=== PATIENT | male | born 1995 | race Caucasian/White ===

== ENCOUNTER 2016-12-26 01:45 | Emergency (ER) | payer OTHER ==
[~2016-12-26] VITALS: Ht 165.1 cm; Wt 63.6 kg
[~2016-12-26 01:45] MED LIST: HYDR-4003 PO
[2016-12-26 01:53] VITALS: BP 142/73; PULSE 74; RESP 16; O2SAT 98
--- NOTE | 2016-12-26 03:19 | ED.REPORT ---
HPI-Extremity Problem Lower Date of Service December 26, 2016 ED Provider: Bolivar Botello MD A healthy 21 year old male presents to the ED accompanied by his father with a right ankle injury onset just prior to arrival. The patient was riding a skateboard and inverted his ankle. The ankle immediately began to swell. The patient denies additional injury/trauma or other symptoms. Nursing Notes Chief Complaint: Extremity Trauma Nursing Notes Reviewed: Yes Allergies: Coded Allergies: No Known Allergies (Unverified , 04/19/16) Scheduled PRN Hydrocodone-Acetaminophen 5-325 mg (Hydrocodone-Acetaminophen 5-325 mg) 1 Each Tablet 1 TABLET PO Q4H PRN PRN For Pain General Time Seen by MD: 03:12 Chief Complaint Ankle injury right Hx Obtained From: Patient Arrived By: Walk-in Onset Occurred: Just prior to arrival Symptom Duration: Since onset Caused by: Sports injury (Skateboarding) Location: : Ankle right Quality: Painful Severity: Current: Moderate Severity: Maximum: Moderate Pertinent Negative: Relieved by nothing Recent Healthcare: No recent doctor visit Past Medical History Past Medical History Healthy Past Surgical History None reported Smoking History Unknown if Ever Smoker Social History Drug Use: THC Other Social History: Good social support Ambulatory Status Independent Review of Systems Constitutional: Denies: Fever Musculoskeletal: Reports: Joint pain (Right ankle), Joint swelling (Right ankle ) Complete sys rev & neg: except as marked. Respiratory: Denies: Non-productive cough, Shortness of breath GI: Denies: Diarrhea, Vomiting Physical Exam Initial Vital Signs Vital Signs (First) Date Time Temp Pulse Resp B/P Pulse Ox O2 Delivery O2 Flow Rate FiO2 12/26/16 01:53 36.7 74 16 142/73 98 Initial VS: Reviewed Head / Eyes: Atraumatic, Normocephalic ENT: Conjunctiva normal, No scleral icterus Neck: Supple, Full range of motion Respiratory: No respiratory distress Skin: Warm, Dry Neurologic: Alert, Oriented Psychiatric: Mood/affect normal, Behavior normal Ankle / Foot: Neurologic intact, Vascular intact (Good pulses) Right Ankle: Positive: Swelling present..., Tender lateral malleolus, Tender medial malleolus General/Constitutional: Awake, Alert Interpretation & Diagnostics X-Ray Interpretation Xray Interpretation: No fracture or dislocation Study Performed: 3 View X-Ray Ordered: Ankle right Interpretation / Wet Read by: Wet read ED physician Re-Eval/Medical Decision Re-Evaluation/Progress #1: Time of Eval: 04:01 Patient Status: Condition improved Re-Evaluation/Progress Note: Discussed with patient x-ray results, diagnosis, and plan for discharge. Follow-up and return to the ER instructions given. Patient agrees with plan for care and all questions were addressed. Re-Evaluation/Progress #2: Time of Eval: 04:07 Patient Status: Condition improved Re-Evaluation/Progress Note: Splint checked. Counseled Regarding: Diagnosis, Need for follow-up, When/why to return to ED Discharge & Departure Impression: Primary Impression: Right ankle sprain Encounter type: initial encounter Disposition: Home Discharge Condition All VS Reviewed: Yes Condition: Improved Patient Instructions: Ankle Sprain (GEN), Crutch Instructions (ED) Additional Instructions: Your emergency room evaluation included interview, physical exam, and ankle x- ray. Your x-ray was negative for fracture or dislocation. Use crutches for ambulation. Elevate your ankle as much as possible and apply ice for pain and swelling. Follow-up with the referred orthopedist this week. Return to the ER with any new or worsening symptoms. Referrals: Randy Sorensen Attestation Portions of this note were transcribed by Mireya Vazquez. I, Dr. Botello, personally performed the history, physical exam, and medical decision-making; I reviewed and confirmed the accuracy of the information in the transcribed note. Signed by: Seth Turner, 12/26/2016, 04:15 copies to: Randy Sorensen DO; Xenia Browne MD, Donald L MD December 26, 2016 03:19 MIREYA VAZQUEZ December 26, 2016 03:22
[2016-12-26 04:47] VITALS: BP 111/60; PULSE 57; RESP 16; O2SAT 99
--- NOTE | 2016-12-26 09:43 | DRSVH ---
PROCEDURE: X-RAY RIGHT ANKLE, MINIMUM THREE VIEWS ([id number]) INDICATIONS: twisted while riding skateboard TECHNIQUE: 3 views of the ankle were acquired. COMPARISON: None. FINDINGS: Bones: No fractures or dislocations. Ankle mortise is normally aligned. No suspicious bony lesions . Soft tissues: Small tibiotalar joint effusion. Achilles tendon appears normal. Lateral malleolar so ft tissue swelling. IMPRESSION: No displaced fracture seen. If there is continued pain, followup exam or additional imaging such as MRI or CT could be performed for further assessment. Lateral soft tissue swelling and tibiotalar joint effusion. Internal derangement cannot be excluded. Dictated by: Oscar SLADE Interpreted: Elvira Ball MD on 12/26/2016 at 9:41 Transcribed by: LION on 12/26/2016 at 9:42 Approved by: Elvira Ball M.D. on 12/26/2016 at 17:04
== END 2016-12-26 04:43 | disposition home or self-care (01) ==
LOC: SED 01:45
DX: S93.401A Sprain of unspecified ligament of right ankle, initial encounter (principal); X50.1XXA Overexertion from prolonged static or awkward postures, initial encounter; Y93.51 Activity, roller skating (inline) and skateboarding; Y99.8 Other external cause status; Y92.019 Unspecified place in single-family (private) house as the place of occurrence of the external cause; F12.10 Cannabis abuse, uncomplicated